=== PATIENT | male | born 1965 | race Two or more races ===

== ENCOUNTER 2017-08-04 13:01 | Outpatient (CLI) | payer OTHER ==
[~2017-08-04 13:01] MED LIST: DEPO-MEDROL40 MG/ML IM; NABUMETONE750 MG PO; TIZANIDINE HCL2 MG PO
== END 2017-08-04 13:45 | disposition home or self-care (01) ==
LOC: MRI 13:01
DX: M54.5 Low back pain (principal)
CPT/HCPCS: 72148

== ENCOUNTER 2018-09-13 15:56 | Outpatient (CLI) | payer OTHER | END 2018-09-13 16:21 | disposition home or self-care (01) | LOC: RAD 15:56 | DX: G89.11 Acute pain due to trauma (principal) ==

== ENCOUNTER → 2022-08-05 | Outpatient (CLI) | payer OTHER | END | disposition home or self-care (01) | LOC: TOM 12:13 | PROVIDERS: ATTEND Otolaryngology | DX: J31.0 Chronic rhinitis (principal) ==

== ENCOUNTER 2023-05-12 11:23 | Outpatient (CLI) | payer OTHER | END 2023-05-12 11:31 | disposition home or self-care (01) | LOC: RAD 11:23 | PROVIDERS: ATTEND Specialist | DX: E78.2 Mixed hyperlipidemia (principal); Z12.5 Encounter for screening for malignant neoplasm of prostate; Z12.11 Encounter for screening for malignant neoplasm of colon; Z13.1 Encounter for screening for diabetes mellitus; Z13.29 Encounter for screening for other suspected endocrine disorder; G47.30 Sleep apnea, unspecified ==

== ENCOUNTER → 2023-09-01 | Outpatient (CLI) | payer OTHER | END | disposition home or self-care (01) | LOC: MRI 12:46 | PROVIDERS: ATTEND Specialist | DX: M25.512 Pain in left shoulder (principal) | CPT/HCPCS: 73221 ==

== ENCOUNTER 2024-02-12 08:01 | Outpatient (CLI) | payer OTHER | END 2024-02-12 08:02 | disposition home or self-care (01) | LOC: NUCLEAR 08:01 | DX: M79.604 Pain in right leg (principal); M79.605 Pain in left leg; R60.0 Localized edema ==

== ENCOUNTER 2024-02-16 08:13 | Outpatient (CLI) | payer OTHER | END 2024-02-16 08:20 | disposition home or self-care (01) | LOC: TOM 08:13 | PROVIDERS: ATTEND Otolaryngology | DX: J31.0 Chronic rhinitis (principal) ==

== ENCOUNTER 2024-02-21 10:06 | Outpatient (CLI) | payer OTHER | END 2024-02-21 10:12 | disposition home or self-care (01) | LOC: MRI 10:06 | PROVIDERS: ATTEND General Practice | DX: M25.561 Pain in right knee (principal); R60.9 Edema, unspecified; R60.0 Localized edema | CPT/HCPCS: 73721 ==

== ENCOUNTER 2024-03-15 07:22 | Outpatient (CLI) | payer OTHER | END 2024-03-15 07:30 | disposition home or self-care (01) | LOC: TOM 07:22 | PROVIDERS: ATTEND Specialist | DX: R68.3 Clubbing of fingers (principal); R60.9 Edema, unspecified ==

== ENCOUNTER 2024-09-17 08:38 | Outpatient (CLI) | payer OTHER | END 2024-09-17 08:49 | disposition home or self-care (01) | LOC: SONOGRAMA 08:38 | PROVIDERS: ATTEND Specialist | DX: I10 Essential (primary) hypertension (principal); E78.5 Hyperlipidemia, unspecified; Z12.11 Encounter for screening for malignant neoplasm of colon; Z12.5 Encounter for screening for malignant neoplasm of prostate; R10.9 Unspecified abdominal pain ==